=== PATIENT | male | born 1985 | race African-American/Black ===

== ENCOUNTER 2018-11-12 10:14 | Day surgery (SDC) | payer MEDICARE, MEDICAID ==
[2018-11-12] MEDS ORDERED: MIDAZOLAM 2 MG/2 ML INJ ONE (13:26)
[2018-11-12] MEDS ORDERED: DEXAMETHASONE SOD PHOSPHATE INJ 4 MG/1 ML VIAL ONE (13:26)
[2018-11-12] MEDS ORDERED: ONDANSETRON HCL INJ/PF 4 MG/2 ML SDV ONE (13:26)
[2018-11-12] MEDS ORDERED: FENTANYL CITRATE INJ/PF 100 MCG/2 ML AMPUL ONE (13:26)
[2018-11-12] MEDS ORDERED: PROPOFOL INJ 200 MG/20 ML VIAL IV ONE (13:27)
[2018-11-12] MEDS ORDERED: LIDOCAINE 2%/EPINEPHRINE INJ 1.7 ML CARTRIDGE ONE (13:29)
[2018-11-12] MEDS ORDERED: BUPIVACAINE HCL 0.5%/EPI 1:200000 INJ 1.8 ML CARTRIDGE ONE (13:29)
[2018-11-12] MEDS ORDERED: FENTANYL CITRATE INJ/PF 100 MCG/2 ML AMPUL IV PRN ×3 (14:07)
[2018-11-12] MEDS ORDERED: DIPHENHYDRAMINE HCL 50 MG/ML VIAL IV PRN (14:07)
[2018-11-12] MEDS ORDERED: MEPERIDINE HCL/PF INJ 25 MG/1 ML DISP.SYRIN IV PRN (14:07)
[2018-11-12] MEDS ORDERED: PROMETHAZINE HCL INJ 25 MG/1 ML VIAL IV PRN ×2 (14:07)
[2018-11-12] MEDS ORDERED: MORPHINE SULFATE 10 MG/ML INJ IV PRN (14:07)
--- NOTE | 2018-11-12 14:26 | Operative Report ---
Operative Report DATE OF SURGERY: 11/12/18 PREOPERATIVE DIAGNOSIS: Dental caries and impacted wisdom teeth POSTOPERATIVE DIAGNOSIS: Same OPERATION: Surgical removal of teeth numbers 1, 16, 17, 29, 30, 31 and 32 with alveoloplasty of the lower right quadrant SURGEON: FLOWER ROMERO ANESTHESIA: GA TISSUE REMOVED OR ALTERED: Teeth and bone which were discarded COMPLICATIONS: None ESTIMATED BLOOD LOSS: minimal INTRAOPERATIVE FINDINGS: nonrestorable teeth, impacted teeth PROCEDURE: The patient was brought into operating room #4 and placed on the operating room table in supine position. General anesthesia was induced via a peripheral IV and continued utilizing endotracheal intubation. The patient was then prepped and draped in the usual fashion for an intraoral procedure. A total of 4 carpules of 2% Lidocaine with 1:100K Epi and 2 carpules of 0.5% Marcaine with 1:200K Epi were delivered to the planned surgical sites via both infiltration and nerve block. The oral cavity and oropharynx were suctioned and a moistened oropharyngeal throat pack was placed. A bite block was used throughout the procedure. Full thickness mucoperisteal flaps were elevated. Ostectomy was completed as needed. Teeth were sectioned as needed. Teeth were delivered with elevators and forceps. Alveoloplasty was completed using rongeurs and bone files. All sites debrided and irrigated. No sinus exposure noted. Mandible intact post op. PRESTON not visualized. Wounds reapproximated and sutured with 4-0 chromic gut. The oral cavity was suctioned and found to be free of debris. The throat pack was removed. The oropharynx was suctioned. Gauze packs were placed bilaterally to aid in continued hemastasis. The patient was awakened from general anesthesia, extubated in the operating room and taken to recovery in spontaneous breathing fashion.
[2018-11-12 16:24] VITALS: BP 129/66
== END 2018-11-12 16:28 | disposition home or self-care (01) ==
LOC: OROUT 10:14
PROVIDERS: ATTEND Dentist Oral and Maxillofacial Surgery
DX: K02.9 Dental caries, unspecified (principal); K08.89 Other specified disorders of teeth and supporting structures; K01.1 Impacted teeth; G35 Multiple sclerosis; F17.210 Nicotine dependence, cigarettes, uncomplicated; Z86.73 Personal history of transient ischemic attack (TIA), and cerebral infarction without residual deficits
CPT/HCPCS: 00170; 41874; 41899; J2250; J3490 ×2; J1100; J3010; J2405; J2704; 170